=== PATIENT | female | born 1955 | race Caucasian/White ===

== ENCOUNTER 2018-06-04 21:32 | Inpatient (IN) | payer BC, OTHER | END 2018-06-07 17:09 | disposition home or self-care (01) | LOC: ED HOLD 06-05 00:35 → ER 21:32 → SUR 3N 06-05 02:00 → PACU 06-05 11:18 → SUR 3N 06-05 13:35 ==

== ENCOUNTER 2025-06-02 06:36 | Day surgery (SDC) | payer MEDICARE, BC ==
[~2025-06-02] VITALS: Ht 170.2 cm; Wt 66.2 kg
[2025-06-02] VITALS (8 sets, daily range): BP systolic 123–142; BP diastolic 68–87; PULSE 59–66; RESP 10–16; TEMP 98; O2SAT 94–99
[~2025-06-02 06:36] MED LIST: ATOR10TA70 PO; B COMPLEX; BENADRYL; CELE-148 PO; ESCI20TA39 PO; GABA300C PO; LAMO100T PO; LOSA-416 PO; MAGNESIUM GLYCINATE; PREVAGEN; TIRZ10PE3 SQ; VITAMIN D 3
[2025-06-02] MEDS ORDERED: BUPIVAcaine/PF 2.5mg/ml (0.25%) 10ml vial ONE ×2 (06:51→09:42)
[2025-06-02] MEDS ORDERED: LIDOcaine 2% (20mg/ml) 5ml vial ONE (07:09)
[2025-06-02] MEDS: ceFAZolin 2gm/dext,iso 50mL 50 ML IV ONE (07:23)
[2025-06-02] MEDS: ringers solution, lacted 1,000 ML IV SCH (07:24)
[2025-06-02 07:47] LABS: MEAN PLATELET VOLUME 7.0 FL (7.4-10.4); PRE OP HEMATOCRIT 39.0 % (35.0-45.0); PRE OP HEMOGLOBIN 13.3 g/dL (12.0-16.0); PRE OP PLATELET COUNT 289 X10'3 (140-440); PRE OP WHITE BLOOD COUNT 4.5 10'3 (4.8-10.8); RED CELL DISTRIBUTION WIDTH 14.2 % (11.5-14.5)
[2025-06-02 08:07] LABS: CREATININE 0.63 MG/DL (0.40-0.90); PRE OP ALT 24 U/L (30-65); PRE OP ANION GAP 8 (8-16); PRE OP AST 15 U/L (10-37); PRE OP BILIRUB, TOTAL 0.4 MG/DL (0.0-1.0); PRE OP GLUCOSE 93 MG/DL (70-104); PRE OP POTASSIUM 4.0 MMOL/L (3.4-5.1); PRE OP SODIUM 144 MMOL/L (135-145); TOTAL CARBON DIOXIDE 27.6 MMOL/L (24-32); eCRCL 83 ML/MIN; eGFR > 90 ML/MIN
[2025-06-02] MEDS ORDERED: ondansetron/PF 4mg/2ml inj IV PRN (08:15)
[2025-06-02] MEDS ORDERED: ringers solution, lacted 1,000 ML IV SCH (08:15)
[2025-06-02] MEDS ORDERED: labetalol 20mg/4ml (5mg/ml) syringe IV PRN (08:15)
[2025-06-02] MEDS ORDERED: morphine 4 MG/ML inj SYRINge IV PRN (08:15)
[2025-06-02] MEDS ORDERED: enalaprilat 1.25mg/ml 2ml vial IV PRN (08:15)
[2025-06-02] MEDS ORDERED: fentaNYL/PF 50MCG/1 ML 2ML syringe IV PRN ×2 (08:15)
[2025-06-02] MEDS ORDERED: HYDROmorphone/PF 0.2 MG/ML SYRINGE IV PRN ×2 (08:15)
[2025-06-02] MEDS ORDERED: LIDOcaine 1% 30ml preserv. free vial ONE (08:53)
[2025-06-02] MEDS ORDERED: fentaNYL/PF 50MCG/1 ML 2ML syringe ONE (09:29)
[2025-06-02] MEDS ORDERED: MIDAZolam 1 MG/ML 5ML VIAL ONE (09:29)
[2025-06-02] MEDS ORDERED: propofol 10mg/ml 20ml vial IV ONE (09:34)
[2025-06-02] MEDS ORDERED: ketorolac trometh 30MG/ML vial 30 MG/ML VIAL ONE (09:37)
[2025-06-02] MEDS ORDERED: 0.9 % SODIUM CHLORIDE 10 ML VIAL ONE (09:37)
[2025-06-02] MEDS ORDERED: acetaminophen 1,000mg/100ml IV 100 ML IV ONE (09:54)
--- NOTE | 2025-06-02 12:13 | OPERATIVE REPORT ---
Operative Report Providers to ~ Date of Procedure: Jun 02, 2025 Pre-Operative Diagnosis: Right carpal and cubital tunnel syndrome Post-Operative Diagnosis Wrist carpal tunnel syndrome, right elbow cubital tunnel syndrome Procedure Performed Wrist open carpal tunnel release and right ulnar neuroplasty at elbow with in- situ decompression Surgeon: Uvaldo Castillo MD Clearing Hand None Anesthesiologist: Franklin Dalal Type of Anesthesia: Other Findings: Estimated Blood Loss: None Specimen Removed: None Description of Procedure: The patient is a 69-year-old woman with carpal and cubital tunnel syndrome on the right side refractory to nonsurgical treatment. Surgery is indicated to improve function. Risks and benefits were discussed with the patient and he agreed to proceed. He was brought to the operating room where the arm was prepped and draped in usual manner. A beer block had been given just prior to prepping and a tourniquet was elevated on the upper arm. After proper time-out procedure was observed a 3 cm incision was made in the palm ulnar to the thenar crease in line with the radial side of the ring finger. The incision was made through skin and palmar fascia the transverse carpal ligament was then opened in line with the skin incision exposing the median nerve. The fascia was divided distally to the transverse arch and then proximally to the wrist crease followed by division of the forearm fascia. This incision was then irrigated and closed with nylon suture. An incision was made posterior to the medial epicondyle at the elbow. Dissection was taken down to the cubital tunnel where the nerve was palpated in the groove. The nerve was unroofed at that level and dissected free from fascial bands a distance of 5 cm above and below the elbow. The nerve was decompressed. The flexion of the elbow did not show any instability so the incision was irrigated and closed in layers. Sterile dressing was applied to both incision sites and the tourniquet was released. The hand perfused well and the patient was taken to the recovery room in stable condition. The patient tolerated the procedure well. UVALDO CASTILLO Jr., MD Jun 02, 2025 12:13
== END 2025-06-02 10:57 | disposition home or self-care (01) ==
LOC: PAS 06:36
PROVIDERS: ATTEND Orthopaedic Surgery Hand Surgery
DX: G56.01 Carpal tunnel syndrome, right upper limb (principal); G56.21 Lesion of ulnar nerve, right upper limb; J45.909 Unspecified asthma, uncomplicated; I10 Essential (primary) hypertension; M17.11 Unilateral primary osteoarthritis, right knee; M20.41 Other hammer toe(s) (acquired), right foot; Z87.440 Personal history of urinary (tract) infections; Z90.710 Acquired absence of both cervix and uterus; Z90.49 Acquired absence of other specified parts of digestive tract; Z98.890 Other specified postprocedural states
CPT/HCPCS: 36415; 64718; 64721; 80053; 82948; 85025; A4215; A6449; J0131; J1885; J2003; J2250; J2704; J3010; J3490; J7030; J7120; Z7506; Z7512; Z7610